=== PATIENT | male | born 1955 | race African-American/Black ===

== ENCOUNTER 2018-04-26 10:32 | Emergency (ER) | payer OTHER ==
[~2018-04-26] VITALS: Ht 180.3 cm; Wt 70.0 kg
[2018-04-26 10:35] VITALS: BP 142/84
== END 2018-04-26 11:14 | disposition left against medical advice (07) ==
LOC: ER 10:32
DX: Z53.21 Procedure and treatment not carried out due to patient leaving prior to being seen by health care provider (principal); F20.9 Schizophrenia, unspecified; M19.90 Unspecified osteoarthritis, unspecified site